=== PATIENT | female | born 1970 | race Caucasian/White ===

== ENCOUNTER 2017-03-09 12:14 | Emergency (ER) | payer OTHER ==
[~2017-03-09] VITALS: Ht 162.6 cm; Wt 93.0 kg
[~2017-03-09 12:14] MED LIST: L-NO1TBD16 PO; MECL25TA3 PO; SERT100T PO
[2017-03-09] MEDS ORDERED: ONDANSETRON PF 4 MG/2 ML VIAL. IV ONE ×2 (12:45→15:00)
[2017-03-09] MEDS ORDERED: MECLIZINE HCL 12.5 MG TABLET. PO ONE (12:45)
[2017-03-09] MEDS ORDERED: IV NORMAL SALINE 1000ML BAG 1,000 ML IV SCH (12:45)
--- NOTE | 2017-03-09 12:56 | PHYS DOC ---
Past Medical History Past Medical History: Depression, Other Additional Past Medical Histor: HORMONE RELACEMENT FROM HYSTER,CHRONIC RIGHT ANKLE PAIN Past Surgical History: Hysterectomy Alcohol Use: None Drug Use: None Adult General Chief Complaint Chief Complaint: DIZZY/LIGHT HEADED HPI HPI Patient is a 46 year old female who presents with complaint of dizziness. The patient was admitted yesterday to the hospital for intractable vertigo. Patient' s symptoms improved with Valium, meclizine, and Zofran. Patient's neurologic examination by Dr. Matos was found to be consistent with peripheral vertigo. The patient was discharged with a prescription for meclizine. Patient states that her symptoms worsened early this morning. Patient took meclizine this morning with no improvement in symptoms. Patient also states that she awoke with left-sided numbness but denies any weakness. Patient has not had any fevers. Patient has had several episodes of dry heaving associated with her dizziness and patient states that she has not been able to tolerate any oral intake today. Review of Systems Review of Systems Constitutional: Denies fever or chills [] Eyes: Denies change in visual acuity, redness, or eye pain [] HENT: Denies nasal congestion or sore throat [] Respiratory: Denies cough or shortness of breath [] Cardiovascular: Denies chest pain or edema [] GI: Nausea, vomiting, denies bloody stools or diarrhea [] : Denies dysuria or hematuria [] Musculoskeletal: Denies back pain or joint pain [] Integument: Denies rash or skin lesions [] Neurologic: Dizziness, left-sided numbness [] Current Medications Current Medications Current Medications Medications (Trade) Dose Ordered Sig/Anslemo Start Time Stop Time Status Last Admin Dose Admin Dexamethasone Sodium Phosphate (Decadron) 12 mg 1X ONCE 03/09/17 15:45 03/09/17 15:46 DC 03/09/17 15:46 12 MG Diazepam (Valium) 2 mg 1X ONCE 03/09/17 15:45 03/09/17 15:46 DC 03/09/17 15:46 2 MG Meclizine HCl (Antivert) 25 mg 1X ONCE 03/09/17 12:45 03/09/17 12:46 DC 03/09/17 12:55 25 MG Ondansetron HCl (Zofran) 4 mg 1X ONCE 03/09/17 15:00 03/09/17 15:01 DC 03/09/17 15:03 4 MG Sodium Chloride 1,000 ml @ 1,000 mls/hr Q1H 03/09/17 12:45 03/09/17 13:44 DC 03/09/17 12:54 1,000 MLS/HR Allergies Allergies Allergies Coded Allergies Type Severity Reaction Last Updated Verified No Known Drug Allergies 03/08/17 No Physical Exam Physical Exam Constitutional: Alert, afebrile, patient currently lying in a position of comfort. [] HENT: Normocephalic, atraumatic, bilateral external ears normal, oropharynx moist, no oral exudates, nose normal. [] Eyes: PERRLA, EOMI, conjunctiva normal, no discharge. [] Neck: Normal range of motion, no tenderness, supple, no stridor. [] Cardiovascular:Heart rate regular rhythm, no murmur [] Lungs & Thorax: Bilateral breath sounds clear to auscultation [] Abdomen: Bowel sounds normal, soft, no tenderness, no masses, no pulsatile masses. [] Skin: Warm, dry, no erythema, no rash. [] Back: No tenderness, no CVA tenderness. [] Extremities: No tenderness, no cyanosis, no clubbing, ROM intact, no edema. [] Neurologic: Alert and oriented X 3, normal motor function, negative pronator drift, normal sensory function, no focal deficits noted. [] Current Patient Data Vital Signs Vital Signs Date Time Temp Pulse Resp B/P (MAP) Pulse Ox O2 Delivery O2 Flow Rate FiO2 03/09/17 15:43 77 21 146/73 (97) 96 Room Air 03/09/17 12:28 98.1 98.1 Lab Values Laboratory Tests Test 03/09/17 11:32 03/09/17 12:50 POC Urine HCG, Qualitative Hcg negative (Negative) White Blood Count 8.4 x10^3/uL (4.0-11.0) Red Blood Count 4.67 x10^6/uL (3.50-5.40) Hemoglobin 15.3 g/dL (12.0-15.5) Hematocrit 43.0 % (36.0-47.0) Mean Corpuscular Volume 92 fL (79-100) Mean Corpuscular Hemoglobin 33 pg (25-35) Mean Corpuscular Hemoglobin Concent 36 g/dL (31-37) Red Cell Distribution Width 13.4 % (11.5-14.5) Platelet Count 250 x10^3/uL (140-400) Neutrophils (%) (Auto) 72 % (31-73) Lymphocytes (%) (Auto) 23 % (24-48) L Monocytes (%) (Auto) 5 % (0-9) Eosinophils (%) (Auto) 0 % (0-3) Basophils (%) (Auto) 0 % (0-3) Neutrophils # (Auto) 6.0 x10^3uL (1.8-7.7) Lymphocytes # (Auto) 1.9 x10^3/uL (1.0-4.8) Monocytes # (Auto) 0.4 x10^3/uL (0.0-1.1) Eosinophils # (Auto) 0.0 x10^3/uL (0.0-0.7) Basophils # (Auto) 0.0 x10^3/uL (0.0-0.2) Sodium Level 141 mmol/L (136-145) Potassium Level 3.8 mmol/L (3.5-5.1) Chloride Level 105 mmol/L (98-107) Carbon Dioxide Level 26 mmol/L (21-32) Anion Gap 10 (6-14) Blood Urea Nitrogen 12 mg/dL (7-20) Creatinine 0.9 mg/dL (0.6-1.0) Estimated GFR (Cockcroft-Gault) 67.7 BUN/Creatinine Ratio 13 (6-20) Glucose Level 106 mg/dL (70-99) H Calcium Level 8.4 mg/dL (8.5-10.1) L Magnesium Level 2.2 mg/dL (1.8-2.4) Total Bilirubin 1.7 mg/dL (0.2-1.0) H Aspartate Amino Transferase (AST) 21 U/L (15-37) Alanine Aminotransferase (ALT) 24 U/L (14-59) Alkaline Phosphatase 111 U/L (46-116) Total Protein 7.2 g/dL (6.4-8.2) Albumin 3.1 g/dL (3.4-5.0) L Albumin/Globulin Ratio 0.8 (1.0-1.7) L Laboratory Tests 03/09/17 12:50 Laboratory Tests 03/09/17 12:50 EKG EKG Initial rhythm strip: Heart rate 90, sinus rhythm, no ectopy [] Radiology/Procedures Radiology/Procedures [facility] [address] [place] [address] IMAGING REPORT Signed PATIENT: CHRISTIAN BLANCA ACCOUNT: [id number] : 1970 LOCATION: ER AGE: 46 SEX: F EXAM STATUS: REG ER ORD. PHYSICIAN: OPHELIA GRAY MD REASON: refractory vertigo symptoms for 2 days, rule out cerebellar ischemia PROCEDURE: BRAIN W/O CONTRAST MR BRAIN HISTORY: PRIOR CT SENT NO PRIOR MRI...PT IN ER RM 19..PT CAME THROUGH ER YESTERDAY WITH SEVERE MIGRAINE, PT IS C/O VERTIGO WITH NAUSEA AND LIGHT SENSITIVITY. TECHNIQUE: Axial diffusion weighted imaging was obtained. Additional sagittal T1, axial T1, axial FLAIR, and axial T2 weighted imaging of the brain was also performed. FINDINGS: No abnormal signal within the brain parenchyma. No evidence of acute intracranial hemorrhage. No restricted diffusion to indicate acute infarct. No extra-axial fluid collections. No midline shift or mass effect. Ventricular size is appropriate. Note is made of a cavum septum pellucidum. Basal cisterns are patent. Arterial flow voids at the skull base and major dural venous sinuses are maintained. Globes and orbits are unremarkable. There is a mucous retention cyst in the left maxillary sinus. IMPRESSION: No acute or recent infarct. No acute intracranial abnormality. Electronically signed by: Timoteo Hart MD (03/09/2017 2:55 PM) DICTATED and SIGNED BY: TIMOTEO HART MD DATE: 03/09/17 1442 CC: OPHELIA GRAY MD; NO PCP ~ [] Course & Med Decision Making Course & Med Decision Making Pertinent Labs and Imaging studies reviewed. (See chart for details) Patient was given IV Valium and Zofran as well as IV fluids in the emergency department. On reevaluation, patient's symptoms have improved. The patient's brain MRI is negative for ischemia. Patient's symptoms appear consistent with peripheral vertigo. Advised patient to continue on oral meclizine. Patient was prescribed oral Valium to take with meclizine to improve control symptoms. Patient was also given IV Decadron in the emergency department as an anti- inflammatory for treatment of presumed peripheral neuronitis. Advised follow-up with the patient's primary doctor in the next 2-3 days for reevaluation and possible referral to ENT if symptoms persist. Advised return to the emergency department for any worsening symptoms. Patient voiced understanding and in agreement with treatment plan. Dragon Disclaimer Dragon Disclaimer This electronic medical record was generated, in whole or in part, using a voice recognition dictation system. Departure Departure Impression: Primary Impression: Peripheral vertigo Disposition: HOME, SELF-CARE Condition: IMPROVED Referrals: NO PCP (PCP) Patient Instructions: Vertigo Additional Instructions: Follow-up to primary doctor in the next 2-3 days. Return to the emergency department for any worsening symptoms. Scripts Diazepam (VALIUM) 5 Mg Tablet 5 MG PO TID Y for SEE COMMENTS, #30 TAB Prov: OPHELIA GRAY MD 03/09/17 Problem Qualifiers Primary Impression: Peripheral vertigo Laterality: left Qualified Codes: H81.392 - Other peripheral vertigo, left ear OPHELIA GRAY MD Mar 09, 2017 12:56
[2017-03-09 12:59] LABS: BASO % 0 % (0-3); EOS % 0 % (0-3); HEMOGLOBIN 15.3 g/dL (12.0-15.5); LYMPH # 1.9 x10^3/uL (1.0-4.8); LYMPH % 23 % (24-48); MEAN CORPUSCULAR HEMOGLOBIN 33 pg (25-35); MEAN CORPUSCULAR HGB CONC 36 g/dL (31-37); MEAN CORPUSCULAR VOLUME 92 fL (79-100); MONO % 5 % (0-9); NEUT % 72 % (31-73); PLATELET COUNT 250 x10^3/uL (140-400); RED BLOOD COUNT 4.67 x10^6/uL (3.50-5.40); RED CELL DISTRIBUTION WIDTH 13.4 % (11.5-14.5); WHITE BLOOD COUNT 8.4 x10^3/uL (4.0-11.0)
[2017-03-09 13:07] LABS: CALCIUM 8.4 mg/dL (8.5-10.1); CREATININE 0.9 mg/dL (0.6-1.0); GFR 67.7; POTASSIUM 3.8 mmol/L (3.5-5.1)
[2017-03-09 13:13] LABS: ALBUMIN 3.1 g/dL (3.4-5.0); ALBUMIN/GLOBULIN RATIO 0.8 (1.0-1.7); MAGNESIUM 2.2 mg/dL (1.8-2.4); TOTAL BILIRUBIN 1.7 mg/dL (0.2-1.0); TOTAL PROTEIN 7.2 g/dL (6.4-8.2)
--- NOTE | 2017-03-09 14:59 | RAD ---
MR BRAIN HISTORY: PRIOR CT SENT NO PRIOR MRI...PT IN ER RM 19..PT CAME THROUGH ER YESTERDAY WITH SEVERE MIGRAINE, PT IS C/O VERTIGO WITH NAUSEA AND LIGHT SENSITIVITY. TECHNIQUE: Axial diffusion weighted imaging was obtained. Additional sagittal T1, axial T1, axial FLAIR, and axial T2 weighted imaging of the brain was also performed. FINDINGS: No abnormal signal within the brain parenchyma. No evidence of acute intracranial hemorrhage. No restricted diffusion to indicate acute infarct. No extra-axial fluid collections. No midline shift or mass effect. Ventricular size is appropriate. Note is made of a cavum septum pellucidum. Basal cisterns are patent. Arterial flow voids at the skull base and major dural venous sinuses are maintained. Globes and orbits are unremarkable. There is a mucous retention cyst in the left maxillary sinus. IMPRESSION: No acute or recent infarct. No acute intracranial abnormality. Electronically signed by: Timoteo Hart MD (03/09/2017 2:55 PM)
[2017-03-09 15:43] VITALS: BP 146/73
[2017-03-09] MEDS ORDERED: DEXAMETHASONE SOD PHOS 20 MG/5 ML VIAL. IV ONE (15:45)
[2017-03-09] MEDS ORDERED: DIAZ5TAB PO (16:16)
== END 2017-03-09 16:29 | disposition home or self-care (01) ==
LOC: ER 12:14
DX: H81.399 Other peripheral vertigo, unspecified ear (principal); G43.909 Migraine, unspecified, not intractable, without status migrainosus; F32.9 Major depressive disorder, single episode, unspecified; G89.29 Other chronic pain; Z90.710 Acquired absence of both cervix and uterus
CPT/HCPCS: 36415; 70551; 80053; 81025; 83735; 85027; 96361; 96374; 96375; 96376; 99285; J1100; J2405; J3360; J7030; J8597